=== PATIENT | female | born 1945 ===

== ENCOUNTER 2022-03-15 16:14 | Emergency (ER) | payer OTHER, SELFPAY ==
[2022-03-15 16:47] VITALS: BP 142/63; PULSE 71; RESP 16; TEMP 36.9; O2SAT 99
--- NOTE | 2022-03-15 17:26 | ED.FEMALEGU ---
HPI - Female Genitourinary General Chief complaint: Urogenital-Female Stated complaint: uti Time Seen by Provider: 03/15/22 17:30 Source: patient, RN notes reviewed and old records reviewed Mode of arrival: ambulatory Limitations: no limitations History of Present Illness HPI Narrative: 76-year-old female presents to the [facility] with concerns for a UTI Patient reports that she started a cabbage soup diet several days ago, started with diarrhea. Denies any abdominal pain States yesterday she started with some frequency, urgency of urination. Had some burning that started this morning. No CVA tenderness. Denies fevers. Related Data Home Medications Medication Instructions Recorded Confirmed amlodipine 5 mg tablet 5 mg PO DAILY 01/29/19 03/15/22 lisinopril 20 1 tablet PO DAILY 01/29/19 03/15/22 mg-hydrochlorothiazide 25 mg tablet metoprolol succinate 25 mg 25 mg PO DAILY 01/29/19 03/15/22 tablet,extended release 24 hr simvastatin 20 mg tablet 20 mg PO DAILY 01/29/19 03/15/22 meloxicam 7.5 mg tablet 7.5 mg PO DAILY 03/15/22 03/15/22 omeprazole 20 mg capsule,delayed 20 mg PO DAILY 03/15/22 03/15/22 release Allergies Allergy/AdvReac Type Severity Reaction Status Date / Time Penicillins Allergy Unknown made her Verified 03/15/22 16:51 head feel fuzzy Review of Systems Review of Systems: All systems reviewed & are unremarkable except as noted in HPI and below Constitutional: Constitutional: Reports no additional constitutional complaints Eyes: Eyes: Reports no additional eye complaints ENT: Reports system reviewed and no additional complaints, except as documented Cardiovascular: Cardiovascular: Reports no additional cardiovascular complaints, Denies chest pain and Denies dyspnea Respiratory: Respiratory: Reports no additional respiratory complaints, Denies chest congestion, Denies cough and Denies dyspnea Gastrointestinal: Gastrointestinal: Reports as per HPI, Denies abdominal pain, Reports diarrhea, Denies nausea and Denies vomiting Genitourinary: Genitourinary: Reports as per HPI and Reports dysuria Musculoskeletal: Musculoskeletal: Reports no additional musculoskeletal complaints Integumentary/Breasts: Skin/Breast: Reports system reviewed and no additional complaints, except as docu Neurologic: Reports system reviewed and no additional complaints, except as documented Psychiatric: Psychiatric: Reports no additional psychiatric complaints Allergic/Immunologic: Allergic/Immunologic: Reports no additional allergic/immunologic complaints PMFSH Past Medical History Medical History (Updated 03/16/22 @ 08:22 by Akanksha Dominguez APRN) H/O gastroesophageal reflux (GERD) History of high blood pressure Hypertension Comments At the time of my signature, I reviewed and agree with the nursing past medical, surgical, social, and family history. There is no relevant family history pertinent to the patient complaint. Exam Const: General: cooperative, healthy appearing, comfortable, no acute distress, well developed, alert and well nourished Nutritional Appearance: well nourished and obese Orientation/consciousness: patient oriented x3 Limitations: no limitations HENMT: Head: normal to inspection Ears: hearing grossly normal bilaterally and external ears normal Face/Nose/Sinus: Normal external nose present, Normal nares present, Normal nasal mucous membranes and turbinates present and normal facial exam Face and sinus: normal facial exam Mouth: Yes Normal oral and palatal mucosa present, Yes lip normal and Yes moist mucous membranes Throat: posterior oropharynx normal and uvula midline Eyes: General: appearance normal, both eyes and all related structures Alignment and Position: alignment normal Periorbital: periorbital findings normal Conjunctivae: conjunctivae normal Pupils: Equal, round and reactive pupils present EOM: EOMs intact bilaterally Neck: Neck: normal visual inspection, full
== END 2022-03-15 17:58 | disposition home or self-care (01) ==
PROVIDERS: Emergency Provider Nurse Practitioner
DX: N39.0 Urinary tract infection, site not specified (principal); K21.9 Gastro-esophageal reflux disease without esophagitis; I10 Essential (primary) hypertension
CPT/HCPCS: 81003; 87077; 87086; 87186; 99213; G0463

== ENCOUNTER 2022-10-28 09:27 | Emergency (ER) | payer OTHER, SELFPAY ==
--- NOTE | ~2022-10-28 | XR_ITS ---
EXAMINATION: XR chest 2V 10/28/2022 10:44 INDICATION: Productive cough for 4 days PROCEDURE: 2 view chest COMPARISON: No prior studies for comparison. FINDINGS: The lungs are clear. The cardiomediastinal silhouette is within normal limits. There are no pleural effusions. There is no pneumothorax suspected. IMPRESSION: 1: NO ACUTE CARDIOPULMONARY DISEASE. Reviewed, dictated and finalized at location L.
[2022-10-28 09:48] VITALS: BP 127/78; PULSE 69; RESP 16; TEMP 37; O2SAT 99
--- NOTE | 2022-10-28 10:10 | ED.GENADULT ---
HPI - General Adult General Chief complaint: Upper Respiratory Infection Stated complaint: Sore Throat/Cough Source: patient Mode of arrival: ambulatory Limitations: no limitations History of Present Illness HPI narrative: Patient presents for evaluation of sick symptoms for the last 2 days. Symptoms include nonproductive cough, dry heaving, headaches, diarrhea, sore throat and nausea. She denies any fever, chills, vomiting, shortness breath or chest pain. She tried taking [id number] cold medication without considerable improvements in her symptoms. She does not smoke. Her is being evaluated here for similar symptoms. Related Data Home Medications Medication Instructions Recorded Confirmed amlodipine 5 mg tablet 5 mg PO DAILY 01/29/19 03/15/22 lisinopril 20 1 tablet PO DAILY 01/29/19 03/15/22 mg-hydrochlorothiazide 25 mg tablet metoprolol succinate 25 mg 25 mg PO DAILY 01/29/19 03/15/22 tablet,extended release 24 hr simvastatin 20 mg tablet 20 mg PO DAILY 01/29/19 03/15/22 meloxicam 7.5 mg tablet 7.5 mg PO DAILY 03/15/22 03/15/22 flaxseed oil 1,000 mg capsule 1,000 mg PO DAILY 10/28/22 10/28/22 Allergies Allergy/AdvReac Type Severity Reaction Status Date / Time Penicillins Allergy Unknown made her Verified 10/28/22 09:57 head feel fuzzy Review of Systems Review of Systems: CONSTITUTIONAL: Denies fever, chills, or sweats. EYES: Denies visual changes, redness, or discharge. ENT: Report sore throat and congestion CARDIOVASCULAR: Denies chest pain, palpitations, or edema. RESPIRATORY: Reports cough. Denies SOB GASTROINTESTINAL: Reports dry heaves. Denies abdominal pain, omiting, or diarrhea. GENITOURINARY: Denies dysuria or hematuria. SKIN: Denies rash or itching. MUSCULOSKELETAL: Denies back pain, joint pain, or myalgia. NEUROLOGIC:Reports headache. Denies numbness, dizziness, or weakness. PSYCHIATRIC: Denies anxiety or depression. [facility] Past Medical History Medical History (Updated 10/28/22 @ 11:01 by Baldo Robbins, [facility], ) H/O gastroesophageal reflux (GERD) History of high blood pressure Hyperlipidemia Hypertension Surgical History Surgical History History of knee replacement Family History Family History Mother Family history non-contributory Social History Social History (Updated 10/28/22 @ 10:22 by Baldo Robbins [facility], ) Substance use: never Living arrangements: with family Gender identity (if verbalized by the patient): Female Sexual Orientation (if Verbalized by the Patient): Straight or Heterosexual Spiritual care concerns: No Exam Narrative: GENERAL: Appears acutely ill but non-toxic. Well-nourished, and in no acute distress. HEAD: Normocephalic, atraumatic. EYES: PERRLA and EOMI. ENT: Clear rhinorrhea present. Posterior pharyngeal erythema without exudate. Uvula is midline. Bilateral tympanic membrane erythema. NECK: Supple. No adenopathy or masses. No carotid bruits or JVD CHEST: Clear to auscultation. Cough present on exam. No respiratory distress. No wheezes rales or rhonchi HEART: Regular rate and rhythm. No murmur heard. Normal peripheral pulses. ABDOMEN: Soft, nontender, nondistended, normal active bowel sounds. EXTREMITIES: Normal range of motion. No edema. SKIN: Warm, dry, no rash. NEURO: No focal deficits. Alert and oriented x3. PSYCH: Normal mood and affect. Course Course Emergency Course: THIS IS A 77-YEAR-OLD FEMALE WHO PRESENTED FOR EVALUATION OF SICK SYMPTOMS. COVID, INFLUENZA, STREP WERE ALL NEGATIVE. CHEST X-RAY NEGATIVE. ALL OF HER 'S TESTS WERE NEGATIVE WELL. EXAM CONSISTENT WITH ACUTE VIRAL SYNDROME. FOLLOW-UP WITH PRIMARY PROVIDER. DECLINED ANY PRESCRIPTIONS ON DISCHARGE. [id number] AGENTS FOR SYMPTOM MANAGEMENT. INCREASE HYDRATION. GO TO THE ER F
== END 2022-10-28 11:12 | disposition home or self-care (01) ==
PROVIDERS: Emergency Provider Nurse Practitioner
DX: B34.9 Viral infection, unspecified (principal); E78.5 Hyperlipidemia, unspecified; I10 Essential (primary) hypertension; Z20.822 Contact with and (suspected) exposure to COVID-19
CPT/HCPCS: 71046; 87081; 87426; 87804; 87880; 99213; C9803; G0463